=== PATIENT | female | born 1995 | race Caucasian/White ===

== ENCOUNTER → 2018-04-02 | Outpatient (CLI) | payer OTHER ==
[~2018-04-02] MED LIST: NONE PER PT
== END ==
LOC: STAR 09:56
PROVIDERS: ATTEND Orthopaedic Surgery
DX: Z02.9 Encounter for administrative examinations, unspecified (principal)

== ENCOUNTER 2018-04-07 09:27 | Day surgery (SDC) | payer OTHER ==
[~2018-04-07] VITALS: Ht 167.6 cm; Wt 73.6 kg
[2018-04-07] MEDS ORDERED: MIDAZOLAM 1 MG/ML, 2ML ONE (09:42)
[2018-04-07] MEDS ORDERED: FENTANYL PF 250 MCG/5ML ONE (09:43)
[2018-04-07] MEDS ORDERED: LACTATED RINGERS 1,000 ML IV SCH (09:45)
[2018-04-07 09:59] LABS: HCG UR SG 1.026 (1.003-1.030)
[2018-04-07] MEDS ORDERED: GABAPENTIN 300 MG CAPSULE PO ONE (10:00)
[2018-04-07] MEDS ORDERED: ACETAMINOPHEN 500 MG TABLET PO ONE (10:00)
[2018-04-07 10:08] VITALS: BP 130/80
[2018-04-07] MEDS ORDERED: ROPIvacaine/PF 0.5%, 30 ML ONE (10:12)
[2018-04-07] MEDS ORDERED: LIDOCAINE/PF 0.5% ,50ML ONE (10:12)
[2018-04-07] MEDS ORDERED: EPINEPHRINE 1 MG/ML, 1ML ONE (10:12)
[2018-04-07] MEDS ORDERED: KETOROLAC 30 MG/1 ML ONE (10:25)
[2018-04-07] MEDS ORDERED: ONDANSETRON 2MG/ML, 2ML ONE (11:29)
[2018-04-07] MEDS ORDERED: CEFAZOLIN 1,000 MG ONE (11:29)
[2018-04-07] MEDS ORDERED: DEXAMETHASONE 4 MG/ML, 1ML ONE (11:29)
[2018-04-07] MEDS ORDERED: BUPIVACAINE/PF 0.5% ONE (11:29)
[2018-04-07] MEDS ORDERED: PROPOFOL 10 MG/ML, 20ML ONE (11:29)
[2018-04-07] MEDS ORDERED: LABETALOL 5MG/ML, 20ML IV PRN (11:30)
[2018-04-07] MEDS ORDERED: MIDAZOLAM 1 MG/ML, 2ML IV PRN (11:30)
[2018-04-07] MEDS ORDERED: EPHEDRINE 50 MG/ML, 1ML IM PRN (11:30)
[2018-04-07] MEDS ORDERED: ALBUTEROL/IPRATROPIUM 2.5MG/0.5MG, 3 ML NPPB PRN (11:30)
[2018-04-07] MEDS ORDERED: METOCLOPRAMIDE 5 MG/ML, 2ML IV PRN (11:30)
[2018-04-07] MEDS ORDERED: ONDANSETRON 2MG/ML, 2ML IV PRN (11:30)
[2018-04-07] MEDS ORDERED: OXYcodone 5 MG/5 ML ORAL.SOL UDC PO PRN (11:30)
[2018-04-07] MEDS ORDERED: PROMETHAZINE 25 MG/ML, 1ML IV PRN (11:30)
[2018-04-07] MEDS ORDERED: SCOPOLAMINE PATCH, 1.5MG PATCH.TD72 TD PRN (11:30)
[2018-04-07] MEDS ORDERED: HYDROmorphone 1 MG/ML, 1ML IV PRN (11:30)
[2018-04-07] MEDS ORDERED: FENTANYL PF 100 MCG/2ML ONE (11:57)
[2018-04-07] MEDS ORDERED: OXYcodone 5 MG/5 ML ORAL.SOL UDC ONE (11:57)
[2018-04-07] MEDS: FENTANYL PF 100 MCG/2ML IV PRN ×3 (12:01→12:11)
[2018-04-07] MEDS ORDERED: MEPERIDINE/PF 50 MG/ML ONE (12:15)
[2018-04-07] MEDS: MEPERIDINE/PF 25MG/0.5ML IVPush PRN ×2 (12:17→12:32)
== END 2018-04-07 14:18 ==
LOC: OUT 09:27
PROVIDERS: ATTEND Orthopaedic Surgery
DX: S83.511A Sprain of anterior cruciate ligament of right knee, initial encounter (principal); M65.861 Other synovitis and tenosynovitis, right lower leg; Z88.8 Allergy status to other drugs, medicaments and biological substances; X58.XXXA Exposure to other specified factors, initial encounter; Y93.89 Activity, other specified; Y92.89 Other specified places as the place of occurrence of the external cause; Y99.8 Other external cause status
CPT/HCPCS: 29888; 64447; 73560; 76000; 81025; C1713; J0171; J0690; J1100; J1885; J2001; J2175; J2250; J2405; J2704; J2795; J3010; J3490; J7120

== ENCOUNTER 2019-01-12 13:42 | Emergency (ER) | payer OTHER ==
[~2019-01-12] VITALS: Ht 167.6 cm; Wt 77.5 kg
[2019-01-12] MEDS ORDERED: antibiotic (14:15)
[2019-01-12] MEDS ORDERED: ONDANSETRON 2MG/ML, 2ML ONE (14:27)
[2019-01-12] MEDS ORDERED: ACETAMINOPHEN 500 MG TABLET ONE (14:27)
[2019-01-12] MEDS ORDERED: ACETAMINOPHEN 500 MG TABLET PO ONE (14:30)
[2019-01-12] MEDS ORDERED: SODIUM CHLORIDE 0.9% 1,000ML IVBOLUS ONE ×2 (14:30→16:30)
[2019-01-12] MEDS ORDERED: ONDANSETRON 2MG/ML, 2ML IVPush ONE (14:30)
[2019-01-12 14:51] LABS: MEAN CORPUSCULAR HEMOGLOBIN 31.8 pg (27.0-34.8); MEAN CORPUSCULAR HGB CONC 34.5 g/dL (32.4-35.8); MEAN CORPUSCULAR VOLUME 92.1 fL (80-100); MEAN PLATELET VOLUME 8.2 fL (7.4-10.4); PLATELET COUNT 327 x10^3/uL (130-400); RED BLOOD COUNT 4.31 x10^6/uL (3.82-5.3); RED CELL DISTRIBUTION WIDTH 13.1 % (9.6-15.2)
--- NOTE | 2019-01-12 14:58 | NUR ---
pt laying on gurney awake & more comfortable, watching TV, responds approp to staff, NAD, comfort measures provided, family at BS, call light within reach.
[2019-01-12 15:00] LABS: CULTURE INDICATED? YES; MICROSCOPIC INDICATED
[2019-01-12 15:03] LABS: ALBUMIN 3.5 g/dL (3.4-5.0); ANION GAP 9 mmol/L (5-15); CHLORIDE 108 mmol/L (98-107)
[2019-01-12 15:08] LABS: ALANINE AMINOTRANSFERASE 28 U/L (12-78); ALKALINE PHOSPHATASE 87 U/L (45-117); BILIRUBIN,TOTAL 0.6 mg/dL (0.2-1.0); CREATININE 0.87 mg/dL (0.55-1.02); TOTAL PROTEIN 7.7 g/dL (6.4-8.2)
[2019-01-12] MEDS ORDERED: CEFTRIAXONE PMX 1GM/50ML 50 ML ONE (15:24)
[2019-01-12] MEDS ORDERED: CEFTRIAXONE PMX 1GM/50ML 50 ML IV ONE (15:30)
[2019-01-12 15:36] LABS: MD YES
[2019-01-12 16:01] VITALS: BP 112/66
--- NOTE | 2019-01-12 16:02 | NUR ---
pt continues laying on gurney awake & comfortable, watching TV, responds approp to staff, NAD, comfort measures provided, family at BS, call light within reach.
[2019-01-12 16:03] LABS: BAND#(MANUAL) 0.22 x10^3/uL; BANDS%(MANUAL) 2 % (0-7); BASOS#(MANUAL) 0.11 x10^3/uL (0-0.1); BASOS% (MANUAL) 1 % (0-1); LYMPH#(MANUAL) 1.34 x10^3/uL (1-3.4); LYMPHS% (MANUAL) 12 % (22-44); MONOS#(MANUAL) 1.46 x10^3/uL (0.3-2.7); MONOS% (MANUAL) 13 % (2-9); SEG#(MANUAL) 8.06 x10^3/uL (1.8-6.8); SEGS% (MANUAL) 72 % (42-75)
[2019-01-12 16:04] LABS: <PLATELET ESTIMATE> ADEQUATE; <PLT MORPHOLOGY> NORMAL PLT MORPH; <RBC MORPHOLOGY> NORMAL
[2019-01-12] MEDS ORDERED: KETOROLAC 30 MG/1 ML ONE (16:05)
[2019-01-12] MEDS ORDERED: KETOROLAC 30 MG/1 ML IVPush ONE (16:30)
--- NOTE | 2019-01-12 16:49 | NUR ---
report given to Gorge CASTILLO
== END 2019-01-12 17:29 | disposition home or self-care (01) ==
LOC: ED 17:23
DX: N12 Tubulo-interstitial nephritis, not specified as acute or chronic (principal); R51 Headache
CPT/HCPCS: 36415; 80053; 81001; 83605; 84145; 85025; 87040; 87086; 96361; 96374; 96375; 99283; J0696; J1885; J2405; J7030; 87077